=== PATIENT | male | born 1980 | race Caucasian/White ===

== ENCOUNTER 2022-06-17 07:22 | Inpatient (IN) | payer BC ==
[2022-06-17] VITALS (9 sets, daily range): BP systolic 90–129; BP diastolic 45–80
[~2022-06-17] VITALS: Ht 172.7 cm; Wt 99.4 kg
[2022-06-17 07:59] LABS: BASOPHILS % 0.3 % (0.0-2.0); EOSINOPHILS % 0.6 % (0.0-5.0); HEMOGLOBIN. 15.6 g/dL (14.0-18.0); LYMPHOCYTES % 18.6 % (20.0-50.0); MEAN CORPUSCULAR HEMOGLOBIN 29.8 pg (28.0-32.0); MEAN CORPUSCULAR VOLUME 89.7 fL (80.0-94.0); MONOCYTES % 8.6 % (2.0-8.0); NEUTROPHILS % 71.9 % (40.0-76.0); RED BLOOD CELL COUNT 5.24 mill/uL (4.7-6.1); RED CELL DISTRIBUTION WIDTH 13.1 % (11.6-14.6)
[2022-06-17 08:05] LABS: CHLORIDE 107 mEq/L (98-107)
[2022-06-17 08:34] LABS: PLATELET 124 x1000/uL (130-400)
[2022-06-17] MEDS ORDERED: NITROGLYCERIN 0.4MG TABLET SL SL PRN (08:45)
[2022-06-17] MEDS ORDERED: ASPIRIN 325MG EC TABLET PO ONE (08:45)
[2022-06-17] MEDS ORDERED: IOHEXOL-350 100 ML BOTTLE ONE (09:28)
[2022-06-17] MEDS ORDERED: METOPROLOL TARTRATE 50MG TABLET PO SCH (09:30)
[2022-06-17] MEDS ORDERED: NITROGLYCERIN SPRAY/4.9GM CAN TL ONE (09:30)
[2022-06-17] MEDS ORDERED: ACETAMINOPHEN 325MG TABLET PO PRN (09:45)
[2022-06-17] MEDS ORDERED: GUAIFENESIN 200MG/10ML SUGAR FREE UDC PO PRN (09:45)
[2022-06-17] MEDS ORDERED: SODIUM CHLORIDE 0.45% 1,000 ML IV SCH (10:30)
[2022-06-17] MEDS ORDERED: ATOR20TA65 MT (10:35)
[2022-06-17 11:01] LABS: T4 FREE 1.07 ng/dL (0.76-1.46)
[2022-06-17] MEDS ORDERED: VISCOUS LIDOCAINE 2% 15 ML UDC PO STA (11:05)
[2022-06-17] MEDS ORDERED: MAGNESIUM/ALUMINUM HYDROXIDE/SIMETHICONE 30ML UDC PO STA (11:05)
[2022-06-17] MEDS ORDERED: DICYCLOMINE 10 MG/5 ML ORAL SYR PO STA (11:05)
== END 2022-06-17 14:45 | disposition home or self-care (01) | DRG 282 ==
LOC: ER 07:22 → 5EST 09:00 → EDBEDREQ 09:20 → ENRESERV 09:52
PROVIDERS: ADMIT Internal Medicine Critical Care Medicine; ATTEND Internal Medicine Critical Care Medicine
DX: I21.4 Non-ST elevation (NSTEMI) myocardial infarction (principal); E78.5 Hyperlipidemia, unspecified; A05.9 Bacterial foodborne intoxication, unspecified; Z20.822 Contact with and (suspected) exposure to COVID-19; D69.6 Thrombocytopenia, unspecified; Z79.899 Other long term (current) drug therapy
CPT/HCPCS: 36415; 71045; 75571; 80053; 80061; 82550; 82607; 83735; 84439; 84443; 84480; 84484; 85025; 87426; 93306; 99285; C9803; Q9967